=== PATIENT | male | born 1975 | race Caucasian/White ===

== ENCOUNTER → 2019-09-01 06:35 | Outpatient (CLI) | payer OTHER, SELFPAY ==
--- NOTE | 2019-09-01 | DI.MRI.S_ITS ---
PROCEDURE: MR ANKLE RT WO/W CON INDICATIONS: Localized swelling, mass and lump TECHNIQUE: Noncontrast sagittal T1 spin echo and T2 fast spin echo with fat saturation, axial proton density fast spin echo and T2 fast spin echo with fat saturation, axial T1 spin echo with fat saturation, coronal T1 spin echo and T2 fast spin echo with fat saturation through the ankle/hindfoot. Post-contrast axial, coronal, and sagittal T1 spin echo with fat saturation through the ankle/hindfoot. COMPARISON: None. FINDINGS: Image quality: Excellent. Bones and joints: No suspicious osseous enhancement. Osteoarthritic changes are noted in tibiotalar, subtalar, talonavicular joints and calcaneocuboid joint. Subtle signal abnormality involving posterior lateral and posterior medial talar dome are seen, concerning for small osteochondral lesions measures up to 7 x 4 mm in size. No fracture or dislocation. No bony erosion or cortical destruction. No pathologic joint effusions. Medial structures: The posterior tibialis, flexor digitorum longus, and flexor hallucis longus tendons are intact. The posterior tibial neurovascular bundle appears normal within the tarsal tunnel, without extrinsic mass effect. The deep layer (anterior and posterior tibiotalar ligaments) and superficial layer (tibionavicular, tibiospring, and tibiocalcaneal ligaments) of the deltoid ligament appear normal. The spring ligament components (superomedial calcaneonavicular, medioplantar oblique calcaneonavicular, and inferoplantar longitudinal ligaments) are intact. Lateral structures: Lobulated fluid signal structure is seen draped around anterolateral aspect of ankle joint at the level of distal lateral malleolus and measures up to 5.2 x 3.4 x 3.8 cm in largest transverse, AP and craniocaudal dimensions. Thin internal septations are noted. No contrast enhancement is noted within this structure. The anterior talofibular, calcaneofibular, and posterior talofibular ligaments appear thickened with intrasubstance fluid signal suggestive of sprain/low-grade intrasubstance partial-thickness tear.. More superiorly, the anterior and posterior tibiofibular ligaments appear intact, as is the intermalleolar ligament. The tibiofibular syndesmosis is normal in width at 2 mm or less. The peroneus longus and brevis tendons demonstrate normal location and morphology. Adjacent bony peroneal tubercle and retrotrochlear prominence are normal in size. The sinus tarsi demonstrates normal fatty signal, without edema, fibrosis, or cyst formation. Visualized sinus tarsi components (cervical ligament, interosseous talocalcaneal ligament, roots of the inferior extensor retinaculum) appear normal. The calcaneonavicular and calcaneocuboid components of the bifurcate ligament appear intact. The dorsal calcaneocuboid ligament appears intact. Anterior structures: The tibialis anterior, extensor hallucis longus, and extensor digitorum longus tendons appear intact. The dorsal talonavicular ligament appears intact. Posterior and plantar structures: Achilles tendon is intact. Medial and lateral bands of the plantar fascia are of normal thickness. No abductor digiti quinti muscle atrophy to suggest Phillips neuropathy. IMPRESSION: 1. Finding is most suggestive of 5.2 x 3.4 x 3.8 cm septated ganglion cyst in anterolateral ankle soft tissue over distal malleolus. No enhancing soft tissue mass is seen. No abnormal intraosseous enhancement. 2. Osteoarthritic changes throughout visualized hindfoot and midfoot joints. No fracture or dislocation. Suggestion of tiny subcentimeter osteochondral lesions involving posterior talar dome as above. 3. Sprain/low to moderate grade intrasubstance partial-thickness tear involving anterior and posterior talofibular ligaments and calcaneofibular ligaments. Medial ankle ligaments are intact. 4. Ankle tendons are grossly intact. Dictated by: Juma Guillermo M.D. on 09/01/2019 at 9:41 Approved by: Juma Guillermo M.D. on 09/01/2019 at 9:48
== END ==
PROVIDERS: Referring Provider Orthopaedic Surgery Foot and Ankle Surgery; Visit Provider Orthopaedic Surgery Foot and Ankle Surgery
DX: R22.41 Localized swelling, mass and lump, right lower limb (principal); S93.491A Sprain of other ligament of right ankle, initial encounter; S93.411A Sprain of calcaneofibular ligament of right ankle, initial encounter
CPT/HCPCS: 73723

== ENCOUNTER → 2020-02-14 09:07 | Outpatient (CLI) | payer OTHER, SELFPAY ==
[2020-02-14 11:32] LABS: COVID19 -Nasal RAPID Negative (Negative)
== END ==
PROVIDERS: Visit Provider Nurse Practitioner
DX: Z20.822 Contact with and (suspected) exposure to COVID-19 (principal); R05 Cough; R21 Rash and other nonspecific skin eruption
CPT/HCPCS: 87635

== ENCOUNTER → 2020-05-10 07:33 | Outpatient (CLI) | payer OTHER, SELFPAY ==
[2020-05-10 08:13] LABS: Add Manual Diff / Slide Review NO; Basophils Absolute Auto 0 /uL (0-100); Basophils Percent Auto 0.8 % (0-2); Eosinophils Absolute Auto 100 /uL (0-450); Eosinophils Percent Auto 2.5 % (2-4); Hematocrit 42.9 % (41-53); Hemoglobin 14.8 g/dL (13.5-17.5); Lymphocytes Absolute Auto 1600 /uL (1100-4500); Mean Corpuscular HGB Conc 34.4 % (30-36); Mean Corpuscular Hemoglobin 31.7 PG (26-34); Monocytes Absolute Auto 500 /uL (0-900); Monocytes Percent Auto 10.2 % (3-14); Neutrophils Absolute Auto 2300 /uL (1500-7000); Neutrophils Percent Auto 51.5 % (50-75); Platelet Count 221 X10^3/uL (150-400); Red Blood Cell Count 4.67 X10^6/uL (4.5-5.9); Red Cell Distribution Width 12.4 % (11.6-14.8); White Blood Cell Count 4.5 X10^3/uL (4.5-11.0)
[2020-05-10 08:15] LABS: HEMOLYSIS < 15 (0-50)
[2020-05-10 08:20] LABS: Alanine Aminotransferase 33 IU/L (<50); Albumin 4.7 g/dL (3.5-5.0); Albumin Globulin Ratio 1.6 (1.0-2.8); Alkaline Phosphatase 33 U/L (38-126); Aspartate Aminotransferase 26 IU/L (17-59); BUN Creatinine Ratio 31.3 (6-22); Bilirubin Total 0.3 mg/dL (0.2-1.3); Blood Urea Nitrogen 26 mg/dL (9-20); Calcium 9.6 mg/dL (8.4-10.2); Carbon Dioxide 26 mmol/L (22-32); Chloride 104 mmol/L (98-107); Cholesterol 220 mg/dL (140-199); Estimated Glomerular Filt Rate > 60.0 mL/min (>60); Glucose 103 mg/dL (70-100); HDL Cholesterol 41 mg/dL (40-60); LDL Cholesterol Calculated 157 mg/dL (<100); Potassium 4.3 mmol/L (3.4-5.1); Sodium 138 mmol/L (137-145); Total Protein 7.7 g/dL (6.3-8.2); Triglycerides 110 mg/dL (35-150)
[2020-05-10 08:31] LABS: Erythrocyte Sedimentation Rate 5 MM/HR (0-15)
[2020-05-10 08:58] LABS: Rheumatoid Factor < 8.6 IU/mL (<12.0)
[2020-05-12 13:09] LABS: C-Reactive Protein Quant < 0.5 mg/dL (<1.0)
[2020-05-13 00:53] LABS: CCP Antibodies IgG/IgA 4 units (0-19)
[2020-05-14 22:51] LABS: ANA Screen, IFA Negative (.)
== END ==
PROVIDERS: PCP Family Medicine; Referring Provider Family Medicine; Visit Provider Family Medicine
DX: R21 Rash and other nonspecific skin eruption (principal)
CPT/HCPCS: 36415; 80053; 80061; 83036; 85025; 85651; 86038; 86140; 86200; 86430

== ENCOUNTER → 2020-07-05 08:23 | Outpatient (CLI) | payer OTHER, SELFPAY ==
[2020-07-05 09:47] LABS: Cholesterol 179 mg/dL (140-199); HDL Cholesterol 34 mg/dL (40-60); LDL Cholesterol Calculated 127 mg/dL (<100); Triglycerides 89 mg/dL (35-150)
== END ==
PROVIDERS: PCP Family Medicine; Referring Provider Family Medicine; Visit Provider Family Medicine
DX: E78.5 Hyperlipidemia, unspecified (principal)
CPT/HCPCS: 36415; 80061

== ENCOUNTER → 2020-08-28 08:04 | Outpatient (CLI) | payer OTHER, SELFPAY | PROVIDERS: PCP Family Medicine; Referring Provider Physician Assistant; Visit Provider Physician Assistant | DX: J02.9 Acute pharyngitis, unspecified (principal) | CPT/HCPCS: 87070 ==

== ENCOUNTER → 2020-08-31 15:06 | Outpatient (CLI) | payer OTHER, SELFPAY | PROVIDERS: PCP Family Medicine; Visit Provider Physician Assistant | DX: J35.8 Other chronic diseases of tonsils and adenoids (principal); L98.9 Disorder of the skin and subcutaneous tissue, unspecified | CPT/HCPCS: 87070; 87075; 87102; 87205 ==

== ENCOUNTER → 2020-09-18 08:07 | Outpatient (CLI) | payer OTHER, SELFPAY ==
--- NOTE | 2020-09-18 08:11 | DI.ECHO.S_ITS ---
[place] [facility]---------+ [facility] +---------+ : : [address] : [address] : : : : [id number] : : : : Phone: [phone]+ Echocardiogram Report + + :Name: LENARD GALLOWAY Study Date: 09/18/2020 Height: 75 in : :[facility] ReadingLocation: Weight: 255 lb : : Gender: Male BSA: 2.4 m2 : :: 1975 Age: 45 yrs BP: 138/90 mmHg: :Reason For Study: HYPERTENSION, INTERVENTIRUCLAR CONDUCTION : :DELAY : :Ordering Physician: MARJORIE, : :SHIVA Performed By: Gloria Davis : :Referring: SHIVA AMADOR : + + Interpretation Summary Left ventricular systolic function is low normal with an estimated ejection fraction of 50 to 55% without any focal wall motion abnormality. There is borderline concentric LVH with left ventricular size that is at the upper limits of normal, possibly reflecting his large BSA. Diastolic function appears normal with normal filling pressures. The right ventricle is at the upper limits of normal with normal systolic function. Right ventricular systolic pressure cannot be estimated but CVP is likely around 8 mmHg. Both atria are normal in size. There is probable mild to moderate mitral regurgitation through an anatomically normal valve but no other significant functional valvular abnormality. The ascending aorta and aortic arch are at the upper limits of normal in size. Procedure: A two-dimensional transthoracic echocardiogram with color flow and Doppler was performed. The study quality was technically adequate. There is no prior echocardiogram noted for this patient. The patient was in sinus rhythm with heart rates between 60-74 bpm during the exam. Left Ventricle: The left ventricle is normal in size. Left ventricular size is at the upper limits of normal. The estimated left ventricular end diastolic volume is 144 ml. There is borderline concentric left ventricular hypertrophy. Left ventricular systolic function is low normal. The ejection fraction is estimated to be 50-55%. There are no focal wall motion abnormalities. Diastolic parameters suggest probable normal left ventricular diastolic function and normal filling pressures. Right Ventricle: The right ventricle is at the upper limits of normal in size. The right ventricular systolic function is normal. Atria: Both atria are normal in size. There is no Doppler evidence for an interatrial shunt. Mitral Valve: The mitral valve leaflets appear normal. There is no evidence of stenosis, fluttering, or prolapse. There is mild to moderate mitral regurgitation. Aortic Valve: The aortic valve is trileaflet. The aortic valve opens well. There is no aortic valve stenosis. No aortic regurgitation is present. Tricuspid Valve: The tricuspid valve is normal in structure and function. There is trace tricuspid regurgitation. Pulmonary artery pressures cannot be estimated because of the lack of a measurable TR jet velocity but the IVC suggests a CVP of around 8 mmHg. Pulmonic Valve: The pulmonic valve leaflets are thin and pliable; valve motion is normal. There is no pulmonic valvular regurgitation. There is no other significant valvular heart disease. Great Vessels: The aortic root is normal size. The ascending aorta is at the upper limits of normal in size. The IVC is dilated (diameter is greater than 2.1 cm) yet it collapses greater than 50% with a sniff. This suggests a right atrial pressure of 8 mm Hg. Pericardium/ Pleura There is no pericardial effusion. There is no pleural effusion. MMode/2D Measurements & Calculations LVIDd: 5.5 cm LVOT diam: 2.7 cm LVIDs: 3.6 cm Ao root diam: 3.7 cm FS: 34.6 % asc Aorta Diam: 3.5 cm IVSd: 1.2 cm Ao Arch Diam (Prox Trans): 3.0 cm LVPWd: 1.0 cm LV barboza. diameter/BSA (cm/m^2): 2.3 LV sys. diameter/BSA (cm/m^2): 1.5 LA A2 area: 24.1 cm2 RA long axis: 5.1 cm LA A4 area: 23.2 cm2 RA area: 18.9 cm2 LA length (vol): 5.9 cm RA vol: 59.3 ml LA vol: 80.5 ml RA : 24.4 ml/m2 LA vol index: 33.1 ml/m2 IVC diam: 2.1 cm RVD1 (basal): 4.5 cm TAPSE: 2.3 cm Doppler Measurements & Calculations Ao V2 max: 113.9 cm/sec LVOT Max Roger: 120.2 cm/sec Ao V2 mean: 73.1 cm/sec LV V1 max P.8 mmHg Ao max P.2 mmHg LV V1 VTI: 21.3 cm Ao mean P.5 mmHg QUINN(I,D): 5.4 cm2 Ao V2 VTI: 23.1 cm QUINN(V,D): 6.1 cm2 sev ratio: 0.92 QUINN indexed to BSA (cm^2/m^2): 2.2 MV E max roger: 69.2 cm/sec PA V2 max: 103.3 cm/sec MV A max roger: 52.6 cm/sec PA V2 mean: 68.0 cm/sec MV E/A: 1.3 PA mean P.2 mmHg Med Peak E' Roger: 7.3 cm/sec PA pr(Accel): 31.0 mmHg E/E' med: 9.5 Lat Peak E' Roger: 11.7 cm/sec E/E' lat: 5.9 E/e' average: 7.7 MV dec time: 0.19 sec SV(LVOT): 124.1 ml Reading Physician:11:25 AM
== END ==
PROVIDERS: PCP Family Medicine; Referring Provider Family Medicine; Visit Provider Family Medicine
DX: I34.0 Nonrheumatic mitral (valve) insufficiency (principal); I45.9 Conduction disorder, unspecified; I10 Essential (primary) hypertension
CPT/HCPCS: 93306

== ENCOUNTER → 2020-10-07 09:20 | Outpatient (CLI) | payer OTHER, SELFPAY ==
[2020-10-07 13:35] LABS: COVID19 -Nasal RAPID Negative (Negative)
== END ==
PROVIDERS: PCP Family Medicine; Visit Provider Physician Assistant
DX: Z20.822 Contact with and (suspected) exposure to COVID-19 (principal); Z01.812 Encounter for preprocedural laboratory examination
CPT/HCPCS: 87635

== ENCOUNTER → 2020-10-09 08:18 | Outpatient (CLI) | payer OTHER, SELFPAY ==
--- NOTE | 2020-10-09 09:01 | PM.TREADMILL ---
Cardiac Stress Test Report Referral & Results Date Patient Seen: 10/09/20 Time Patient Seen: 08:45 Requesting provider: aMninder Nolasco Indication: HTN Rest ECG: NSR with possible j-point elevation in precordial leads Procedure Note: Today following both written and verbal informed consent, the patient was exercised according to a standard Ishmael protocol. The patient exercised for a total of 15 minutes achieving a maximum heart rate of 169. Patient's maximum systolic blood pressure was 212. This was an estimated 14.8 METs. 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 Excellent exercise capacity (TD -30% on active scale). No signs or symptoms of angina. No significant EKG changes other than occasional PVCs at peak exercise. Impression: Low probability for ischemia. Graff treadmill score of 15 is associated with 97% 5 year survival rate from cardiac causes of mortality. Please note: Actual ECG tracings can be found in the PACS system.
== END ==
PROVIDERS: PCP Family Medicine; Referring Provider Family Medicine; Visit Provider Family Medicine
DX: I10 Essential (primary) hypertension (principal); E78.2 Mixed hyperlipidemia; I45.9 Conduction disorder, unspecified
CPT/HCPCS: 93016; 93017; 93018

== ENCOUNTER → 2022-05-20 09:11 | Outpatient (CLI) | payer OTHER, SELFPAY ==
[2022-05-20 09:42] LABS: Add Manual Diff / Slide Review NO; Basophils Absolute Auto 0 /uL (0-100); Basophils Percent Auto 0.4 % (0-2); Eosinophils Absolute Auto 100 /uL (0-450); Eosinophils Percent Auto 1.9 % (2-4); Hematocrit 42.3 % (41-53); Hemoglobin 14.6 g/dL (13.5-17.5); Lymphocytes Absolute Auto 1800 /uL (1100-4500); Lymphocytes Percent Auto 37.5 % (25-40); Mean Corpuscular HGB Conc 34.6 % (30-36); Mean Corpuscular Hemoglobin 31.7 PG (26-34); Mean Corpuscular Volume 91.6 fL (80-100); Monocytes Absolute Auto 400 /uL (0-900); Monocytes Percent Auto 9.1 % (3-14); Neutrophils Absolute Auto 2500 /uL (1500-7000); Neutrophils Percent Auto 51.1 % (50-75); Platelet Count 187 X10^3/uL (150-400); Red Blood Cell Count 4.62 X10^6/uL (4.5-5.9); Red Cell Distribution Width 12.8 % (11.6-14.8); White Blood Cell Count 4.9 X10^3/uL (4.5-11.0)
[2022-05-20 09:58] LABS: Alanine Aminotransferase 44 IU/L (<50); Albumin 4.5 g/dL (3.5-5.0); Albumin Globulin Ratio 1.5 (1.0-2.8); Alkaline Phosphatase 33 U/L (38-126); Aspartate Aminotransferase 34 IU/L (17-59); BUN Creatinine Ratio 33.7 (6-22); Bilirubin Total 0.6 mg/dL (0.2-1.3); Blood Urea Nitrogen 28 mg/dL (9-20); Calcium 9.6 mg/dL (8.4-10.2); Carbon Dioxide 27 mmol/L (22-32); Chloride 101 mmol/L (98-107); Cholesterol 223 mg/dL (140-199); Estimated Glomerular Filt Rate > 60 mL/min (>60); Glucose 98 mg/dL (70-100); HDL Cholesterol 45 mg/dL (40-60); HEMOLYSIS < 15 (0-50); LDL Cholesterol Calculated 153 mg/dL (<100); Potassium 4.5 mmol/L (3.4-5.1); Sodium 136 mmol/L (137-145); Total Protein 7.5 g/dL (6.3-8.2); Triglycerides 125 mg/dL (35-150)
== END ==
PROVIDERS: PCP Family Medicine; Referring Provider Family Medicine; Visit Provider Family Medicine
DX: E78.2 Mixed hyperlipidemia (principal); I10 Essential (primary) hypertension
CPT/HCPCS: 36415; 80053; 80061; 85025

== ENCOUNTER → 2023-08-28 08:17 | Outpatient (CLI) | payer OTHER, SELFPAY ==
[2023-08-28 09:06] LABS: Add Manual Diff / Slide Review NO; Basophils Absolute Auto 0 /uL (0-100); Basophils Percent Auto 0.5 % (0-2); Eosinophils Absolute Auto 100 /uL (0-450); Eosinophils Percent Auto 1.5 % (2-4); Hematocrit 41.7 % (41-53); Hemoglobin 14.5 g/dL (13.5-17.5); Lymphocytes Absolute Auto 1400 /uL (1100-4500); Lymphocytes Percent Auto 29.3 % (25-40); Mean Corpuscular HGB Conc 34.7 % (30-36); Mean Corpuscular Hemoglobin 32.7 PG (26-34); Mean Corpuscular Volume 94.2 fL (80-100); Monocytes Absolute Auto 500 /uL (0-900); Monocytes Percent Auto 9.4 % (3-14); Neutrophils Absolute Auto 2900 /uL (1500-7000); Neutrophils Percent Auto 59.3 % (50-75); Platelet Count 190 X10^3/uL (150-400); Red Blood Cell Count 4.43 X10^6/uL (4.5-5.9); White Blood Cell Count 4.9 X10^3/uL (4.5-11.0)
[2023-08-28 09:30] LABS: Alanine Aminotransferase 48 IU/L (<50); Albumin 4.6 g/dL (3.5-5.0); Albumin Globulin Ratio 1.9 (1.0-2.8); Alkaline Phosphatase 38 U/L (38-126); Aspartate Aminotransferase 33 IU/L (17-59); Blood Urea Nitrogen 15 mg/dL (9-20); Calcium 9.2 mg/dL (8.4-10.2); Carbon Dioxide 23 mmol/L (22-32); Chloride 104 mmol/L (98-107); Cholesterol 158 mg/dL (140-199); Estimated Glomerular Filt Rate > 60 mL/min (>60); Globulin 2.4 g/dL (1.7-4.1); Glucose 98 mg/dL (70-100); HDL Cholesterol 64 mg/dL (40-60); HEMOLYSIS < 15 (0-50); LDL Cholesterol Calculated 69 mg/dL (<100); Potassium 4.1 mmol/L (3.4-5.1); Sodium 135 mmol/L (137-145); Triglycerides 124 mg/dL (35-150)
[2023-08-28 09:35] LABS: Creatinine Urine Random 58.65 mg/dL
[2023-08-28 09:45] LABS: Microalbumin Urine Random < 0.6 mg/dL (0-1.6)
[2023-08-28 10:01] LABS: TSH w/ Reflex to FT4 2.22 uIU/mL (0.47-4.68)
[2023-08-29 08:07] LABS: Apolipoprotein B 68 mg/dL (<90)
== END ==
PROVIDERS: PCP Family Medicine; Referring Provider Family Medicine; Visit Provider Family Medicine
DX: I10 Essential (primary) hypertension (principal); E78.5 Hyperlipidemia, unspecified; Z83.49 Family history of other endocrine, nutritional and metabolic diseases
CPT/HCPCS: 36415; 80053; 80061; 82043; 82172; 82570; 83695; 84443; 85025